=== PATIENT | male | born 1990 | race Two or more races ===

== ENCOUNTER 2020-06-07 02:01 | Emergency (ER) | payer OTHER ==
[~2020-06-07] VITALS: Ht 170.2 cm; Wt 54.4 kg
[2020-06-07 02:19] VITALS: BP 127/89
[2020-06-07] MEDS ORDERED: AMOX/CLAVULANATE 875 MG TABLET PO ONE (02:30)
--- NOTE | 2020-06-07 02:30 | NUR ---
RADIOLOGY AT BEDSIDE FOR XRAY
[2020-06-07] MEDS ORDERED: AMOX/CLAVULANATE 875 MG TABLET ONE (02:47)
--- NOTE | 2020-06-07 03:18 | NUR ---
Patient discharged to home in stable condition. Written and verbal after care instructions given. Patient verbalizes understanding of instruction. PRESCRIPTION PROVIDED AND EXPLAINED TO PATIENT
== END 2020-06-07 03:20 | disposition home or self-care (01) ==
LOC: ER 02:12
DX: S60.221A Contusion of right hand, initial encounter (principal); S61.234A Puncture wound without foreign body of right ring finger without damage to nail, initial encounter; W54.0XXA Bitten by dog, initial encounter; Y93.89 Activity, other specified; Y92.89 Other specified places as the place of occurrence of the external cause; Y99.8 Other external cause status
CPT/HCPCS: 73130-TC